=== PATIENT | male | born 1965 | race African-American/Black ===

== ENCOUNTER 2023-08-14 19:05 | Emergency (ER) | payer MEDICAID ==
[~2023-08-14] VITALS: Ht 175.3 cm; Wt 80.0 kg
[2023-08-14 19:08] VITALS: O2SAT 96
[2023-08-14 23:46] VITALS: BP 182/77; PULSE 55; RESP 17; TEMP 98.6
[2023-08-15] MEDS ORDERED: IBUP-2028 MT (03:55)
== END 2023-08-14 23:59 | disposition home or self-care (01) ==
LOC: ER 20:37
DX: R07.9 Chest pain, unspecified (principal); I69.30 Unspecified sequelae of cerebral infarction; I10 Essential (primary) hypertension
CPT/HCPCS: 93005; 99283

== ENCOUNTER 2023-08-15 01:06 | Emergency (ER) | payer MEDICAID, OTHER ==
[~2023-08-15] VITALS: Ht 172.7 cm; Wt 79.5 kg
[2023-08-15 01:19] VITALS: BP 159/112; O2SAT 100
[2023-08-15 02:13] LABS: BASOPHILS % 0.5 % (0.0-2.0); HEMATOCRIT. 38.2 % (42.0-52.0); HEMOGLOBIN. 12.8 g/dL (14.0-18.0); LYMPHOCYTES % 26.6 % (20.0-50.0); MEAN CORPUSCULAR HEMOGLOBIN 32.7 pg (28.0-32.0); MEAN CORPUSCULAR HGB CONC 33.5 g/dL (31.0-37.0); MEAN CORPUSCULAR VOLUME 97.8 fL (80.0-94.0); MEAN PLATELET VOLUME 6.4 fl (7.4-10.4); MONOCYTES % 14.1 % (2.0-8.0); NEUTROPHILS % 55.8 % (40.0-76.0); PLATELET 253 x1000/uL (130-400); RED CELL DISTRIBUTION WIDTH 13.4 % (11.6-14.6)
[2023-08-15 02:23] LABS: CHLORIDE 106 mEq/L (98-107); INDEX HEMOLYSI 1 (1-3); INDEX ICTERIC 1 (1-4); INDEX LIPEMIC 1 (1-3); SODIUM 140 mEq/L (136-145)
[2023-08-15 02:30] LABS: ALANINE AMINOTRANSFERASE 27 IU/L (13-61); ASPARTATE AMINOTRANSFERASE 23 IU/L (15-37); BILIRUBIN TOTAL 1.7 mg/dL (0.1-1.0); CARBON DIOXIDE 30 mEq/L (21-32); CREATININE 1.3 mg/dL (0.6-1.3); GLUCOSE 83 mg/dL (70-105); PROTEIN TOTAL 7.7 g/dL (6.0-8.3); UREA NITROGEN BLOOD 16 mg/dL (7-21)
[2023-08-15 02:53] LABS: ETHANOL BLOOD < 10 mg/dL (<10); TROPONIN I HIGH SENSITIVITY 7 ng/L (<78)
[2023-08-15] MEDS ORDERED: IBUP-2028 MT (03:55)
[2023-08-15 04:20] VITALS: PULSE 54; RESP 17; TEMP 98.6
== END 2023-08-15 04:20 | disposition home or self-care (01) ==
LOC: ER 01:06
DX: M54.2 Cervicalgia (principal); I10 Essential (primary) hypertension; Z86.73 Personal history of transient ischemic attack (TIA), and cerebral infarction without residual deficits
CPT/HCPCS: 36415; 71045; 80053; 80320; 84484; 85025; 93005; 99285; G0480